=== PATIENT | female | born 1985 | race Two or more races ===

== ENCOUNTER 2019-04-30 01:46 | Emergency (ER) | payer OTHER ==
[~2019-04-30] VITALS: Ht 172.7 cm; Wt 93.0 kg
[2019-04-30 01:54] VITALS: BP 141/98
== END 2019-04-30 06:48 | disposition left against medical advice (07) ==
LOC: ER 01:48
DX: J02.9 Acute pharyngitis, unspecified (principal); Z53.21 Procedure and treatment not carried out due to patient leaving prior to being seen by health care provider

== ENCOUNTER 2019-05-10 16:53 | Emergency (ER) | payer OTHER ==
[~2019-05-10] VITALS: Ht 172.7 cm; Wt 93.0 kg
[2019-05-10 16:59] VITALS: BP 104/80
[2019-05-10] MEDS ORDERED: cefTRIAXone SOD 1,000 MG VL IM ONE (17:45)
[2019-05-10] MEDS ORDERED: IBUPROFEN 800 MG TAB PO ONE (17:45)
== END 2019-05-10 18:10 | disposition home or self-care (01) ==
LOC: ER 16:53
DX: H66.93 Otitis media, unspecified, bilateral (principal); J02.9 Acute pharyngitis, unspecified
CPT/HCPCS: 96372; 99283; J0696